=== PATIENT | female | born 1980 | race Two or more races ===

== ENCOUNTER 2021-11-14 23:12 | Emergency (ER) | payer SELFPAY ==
[~2021-11-14] VITALS: Ht 160 cm; Wt 72.6 kg
[2021-11-14] MEDS ORDERED: methylPREDNISolone SOD SUCC 125 MG/2 ML VL ONE (23:16)
[2021-11-14] MEDS ORDERED: methylPREDNISolone SOD SUCC 125 MG/2 ML VL IV ONE (23:30)
[2021-11-14 23:42] LABS: Basophils # (auto) 0.1 10 ^3/uL (0-0.2); Mean Corpuscular Volume 71.5 fL (80.0-100.0); Monocytes # (auto) 1.1 10 ^3/uL (0-1.3)
[2021-11-14 23:44] LABS: Basophils % (auto) 0.6 % (0.0-2.0); Eosinophils % (auto) 7.6 % (0.0-7.0); Hematocrit 31.8 % (36.0-46.0); Hemoglobin 9.6 g/dL (12.2-16.2); Lymphocytes # (auto) 5.1 10 ^3/uL (0.4-5.4); Lymphocytes % (auto) 39.3 % (10.0-50.0); Mean Corpuscular Hemoglobin 21.7 pg (28.0-32.0); Mean Corpuscular Hgb Conc. 30.3 g/dL (32.0-36.0); Monocytes % (auto) 8.7 % (0.0-12.0); Neutrophils # (auto) 5.7 10 ^3/uL (1.6-8.6); Neutrophils % (auto) 43.8 % (37.0-80.0); Nucleated Red Blood Cells % 0.3 %; Red Blood Cells 4.44 10^6/uL (4.0-5.20)
[2021-11-14] MEDS ORDERED: ALBUTEROL SULF 2.5 MG/0.5ML(0.5%) NEB SOLN NEB ONE (23:45)
[2021-11-14] MEDS ORDERED: IPRATROPIUM BROM 0.5 MG/2.5ML INH SOL NEB ONE (23:45)
[2021-11-14 23:59] LABS: Albumin 3.6 g/dL (3.4-5.0); BUN/Creatinine Ratio 23.5; Calcium 7.8 mg/dL (8.5-10.1); Potassium 4.1 mmol/L (3.5-5.1)
[2021-11-15 00:07] LABS: Bilirubin, Total 0.3 mg/dL (0.2-1.0); Total Protein 7.2 g/dL (6.4-8.2)
[2021-11-15 00:10] LABS: Red Cell Distribution Width 23.7 % (11.8-14.3)
[2021-11-15 00:52] VITALS: BP 115/85
[2021-11-15] MEDS ORDERED: guaiFENesin 200 MG/10 ML UD PO PRN (03:45)
[2021-11-15] MEDS ORDERED: DEXTROSE (50%) 50ML SYRG IV PRN (03:45)
[2021-11-15] MEDS ORDERED: LORATADINE 10 MG TAB PO SCH (03:45)
[2021-11-15] MEDS ORDERED: SODIUM CHLORIDE 0.9% 1,000 ML IV SCH (03:45)
[2021-11-15] MEDS ORDERED: ONDANSETRON HCL 4 MG/2 ML VIAL IV PRN (03:45)
[2021-11-15] MEDS ORDERED: MAGNESIUM SULFATE 1GM/100ML 100 ML IV ONE (03:45)
[2021-11-15] MEDS ORDERED: DOCUSATE SOD 100 MG CAP PO PRN (03:45)
[2021-11-15] MEDS ORDERED: FAMOTIDINE 20 MG TAB PO ONE (03:45)
[2021-11-15] MEDS ORDERED: ACETAMINOPHEN 325 MG TAB PO PRN (03:45)
[2021-11-15] MEDS ORDERED: NITROGLYCERIN 0.4 MG SL TAB SL PRN (03:45)
[2021-11-15] MEDS ORDERED: ALBUTEROL SULF 2.5 MG/0.5ML(0.5%) NEB SOLN NEB PRN (03:45)
[2021-11-15] MEDS ORDERED: MONTELUKAST SODIUM 10 MG TAB PO SCH (03:45)
[2021-11-15 04:22] VITALS: BP 121/58
[2021-11-15] MEDS ORDERED: PRED20TA2 PO (04:28)
[2021-11-15] MEDS ORDERED: FLU220IH INH (04:28)
[2021-11-15] MEDS ORDERED: IPRATROPIUM BROM 0.5 MG/2.5ML INH SOL NEB SCH (06:00)
[2021-11-15] MEDS ORDERED: ALBUTEROL SULF 2.5 MG/0.5ML(0.5%) NEB SOLN NEB SCH (06:00)
[2021-11-15] MEDS ORDERED: methylPREDNISolone SOD SUCC 125 MG/2 ML VL IV SCH (06:00)
[2021-11-15] MEDS ORDERED: InsuLIN REG 1unit/0.01ml Soln (100units/ml) SC SCH (07:00)
[2021-11-15] MEDS ORDERED: ACCU-CHEK COMFORT CURVE STRIP VI SCH (07:00)
[2021-11-15] MEDS ORDERED: ENOXAPARIN SOD 40 MG/0.4 ML SYRINGE SC SCH (10:00)
[2021-11-15] MEDS ORDERED: FAMOTIDINE 20 MG TAB PO SCH (10:00)
== END 2021-11-15 04:33 | disposition left against medical advice (07) ==
LOC: ER 23:12 → EDBD 23:12 → UNDOADMIN 11-15 03:46 → WEST WING 11-15 03:46 → ER 11-15 04:33
DX: J45.901 Unspecified asthma with (acute) exacerbation (principal); Z20.822 Contact with and (suspected) exposure to COVID-19; Z53.29 Procedure and treatment not carried out because of patient's decision for other reasons
CPT/HCPCS: 36415; 36600; 71045; 80053; 82805; 83880; 84484; 84702; 85025; 87040; 87426; 96374; 99285; J2930; J3475; 93005

== ENCOUNTER 2021-11-17 10:15 | Inpatient (IN) | payer MEDICAID, OTHER ==
[~2021-11-17] VITALS: Ht 154.9 cm; Wt 85.3 kg
[~2021-11-17 10:15] MED LIST: FLU220IH INH; PRED20TA2 PO
[2021-11-17] MEDS ORDERED: cefTRIAXone SOD 1,000 MG VL IM ONE (11:45)
[2021-11-17] MEDS ORDERED: VANCOMYCIN 1GM/250ML 250 ML IV ONE (12:30)
[2021-11-17 14:04] LABS: Albumin 3.7 g/dL (3.4-5.0); Calcium 8.4 mg/dL (8.5-10.1)
[2021-11-17] MEDS ORDERED: FERR-7 PO (14:06)
[2021-11-17 14:07] LABS: BUN/Creatinine Ratio 24.6; Bilirubin, Total 0.5 mg/dL (0.2-1.0); Total Protein 7.1 g/dL (6.4-8.2)
[2021-11-17] MEDS ORDERED: ONDANSETRON HCL 4 MG/2 ML VIAL IV PRN (14:30)
[2021-11-17] MEDS ORDERED: ALBUTEROL SULF 2.5 MG/0.5ML(0.5%) NEB SOLN NEB PRN (14:30)
[2021-11-17] MEDS ORDERED: ACETAMINOPHEN 325 MG TAB PO PRN (14:30)
[2021-11-17] MEDS ORDERED: VANCOMYCIN PER PHARMACY 0 MG IV SCH (14:30)
[2021-11-17] MEDS: predniSONE 20 MG TAB PO SCH (14:45)
[2021-11-17 16:42] LABS: Basophils # (auto) 0.1 10 ^3/uL (0-0.2); Lymphocytes # (auto) 1.1 10 ^3/uL (0.4-5.4); Monocytes # (auto) 0.4 10 ^3/uL (0-1.3); Nucleated Red Blood Cells % 0.1 %; Red Blood Cells 4.22 10^6/uL (4.0-5.20); White Blood Cell 7.8 10^3/uL (4.4-10.8)
[2021-11-17 16:43] LABS: Basophils % (auto) 0.7 % (0.0-2.0); Eosinophils # (auto) 0.5 10 ^3/uL (0-0.8); Eosinophils % (auto) 6.4 % (0.0-7.0); Hematocrit 29.5 % (36.0-46.0); Lymphocytes % (auto) 14.5 % (10.0-50.0); Mean Corpuscular Hemoglobin 21.4 pg (28.0-32.0); Mean Corpuscular Hgb Conc. 30.6 g/dL (32.0-36.0); Monocytes % (auto) 4.7 % (0.0-12.0); Neutrophils # (auto) 5.7 10 ^3/uL (1.6-8.6); Neutrophils % (auto) 73.7 % (37.0-80.0)
[2021-11-17 16:44] LABS: Red Cell Distribution Width 24.7 % (11.8-14.3)
[2021-11-17 18:32] VITALS: BP 111/62
[2021-11-17 19:10] VITALS: BP 111/62
[2021-11-17] MEDS ORDERED: ALBUAER3 IN (20:43)
[2021-11-17] MEDS ORDERED: AMOX500T86 PO (20:43)
[2021-11-17 21:44] VITALS: BP 111/62
[2021-11-17] MEDS: VANCOMYCIN 1GM/250ML 250 ML IV SCH (21:48)
[2021-11-17 22:00] VITALS: BP 106/66
[2021-11-18] MEDS ORDERED: diphenhdrAMINE HCL 50 MG/1 ML VL IV ONE (02:15)
[2021-11-18 05:00] VITALS: BP 105/58
[2021-11-18] MEDS: VANCOMYCIN 1GM/250ML 250 ML IV SCH ×2 (05:59→14:00)
[2021-11-18 09:00] VITALS: BP 108/61
[2021-11-18] MEDS ORDERED: FLUTICASONE PROP NASAL SPR 0.05 % (50MCG) 16GM EACHNOSTRI SCH (10:00)
[2021-11-18] MEDS: predniSONE 20 MG TAB PO SCH (10:12)
[2021-11-18] MEDS ORDERED: ALBUTEROL SULF 2.5 MG/0.5ML(0.5%) NEB SOLN NEB SCH (12:00)
[2021-11-18] MEDS ORDERED: BUDESONIDE (INHALATION) 0.5 MG/2 ML NEB NEB SCH ×2 (12:00→22:00)
[2021-11-18 13:00] VITALS: BP 111/66
[2021-11-18 17:00] VITALS: BP 114/69
== END 2021-11-18 17:10 | disposition home or self-care (01) | DRG 141 ==
LOC: ER 10:15 → OVERFLOW 14:30 → CENTRAL 18:21
PROVIDERS: ADMIT Internal Medicine; ATTEND Internal Medicine
DX: J45.909 Unspecified asthma, uncomplicated (principal); R78.81 Bacteremia; B96.89 Other specified bacterial agents as the cause of diseases classified elsewhere; Z20.822 Contact with and (suspected) exposure to COVID-19; R53.83 Other fatigue
CPT/HCPCS: 36415; 80053; 80202; 83605; 85025; 87040; 87426; 94640; 96365; 96375; G0378; J0696

== ENCOUNTER 2023-10-05 01:40 | Emergency (ER) | payer MEDICAID ==
[~2023-10-05] VITALS: Ht 30.5 cm; Wt 0.5 kg
[~2023-10-05 01:40] MED LIST changes: +ALBUAER3 IN; +AMOX500T86 PO; +FERR-7 PO
[2023-10-05] MEDS ORDERED: ALBUTEROL SULF 2.5 MG/0.5ML(0.5%) NEB SOLN NEB ONE (02:00)
[2023-10-05] MEDS ORDERED: IPRATROPIUM BROM 0.5 MG/2.5ML INH SOL NEB ONE (02:00)
[2023-10-05] MEDS ORDERED: LEVALBUTEROL HCL 1.25 MG/3 ML NEB NEB STA (02:05)
[2023-10-05] MEDS ORDERED: FAMOTIDINE (10MG/ML) 2ML VL IV ONE (02:15)
[2023-10-05] MEDS ORDERED: BUDESONIDE (INHALATION) 0.5 MG/2 ML NEB NEB ONE (02:15)
[2023-10-05] MEDS ORDERED: SODIUM CHLORIDE 0.9% 1,000 ML IV ONE (02:15)
[2023-10-05] MEDS ORDERED: methylPREDNISolone SOD SUCC 125 MG/2 ML VL IV ONE (02:15)
[2023-10-05] MEDS ORDERED: MAGNESIUM SULFATE 1GM/100ML 100 ML IV SCH (02:15)
[2023-10-05] MEDS ORDERED: DexAMETHasone SOD PHOS 10MG/1ML VIAL INJ IV ONE (02:15)
[2023-10-05 02:26] VITALS: TEMP 98.9
[2023-10-05 02:39] LABS: Chloride 106 mmol/L (98-107); Potassium 3.7 mmol/L (3.5-5.1); Sodium 136 mmol/L (136-145)
[2023-10-05 02:40] LABS: Anion Gap 6 (5-15); Calcium 8.8 mg/dL (8.7-10.4); Carbon Dioxide 24 mmol/L (20-30); Eosinophils # (auto) 0.4 10 ^3/uL (0-0.8)
[2023-10-05 02:43] LABS: Basophils # (auto) 0 10 ^3/uL (0-0.2); Basophils % (auto) 0.4 % (0.0-2.0); Eosinophils % (auto) 3.4 % (0.0-7.0); Hematocrit 35.2 % (36.0-46.0); Lymphocytes # (auto) 2.3 10 ^3/uL (0.4-5.4); Lymphocytes % (auto) 21.9 % (10.0-50.0); Mean Corpuscular Hgb Conc. 31.2 g/dL (32.0-36.0); Monocytes # (auto) 0.8 10 ^3/uL (0-1.3); Monocytes % (auto) 7.9 % (0.0-12.0); Neutrophils # (auto) 7.1 10 ^3/uL (1.6-8.6); Neutrophils % (auto) 66.4 % (37.0-80.0); Red Blood Cells 4.39 10^6/uL (4.0-5.20); Red Cell Distribution Width 16.9 % (11.8-14.3); White Blood Cell 10.6 10^3/uL (4.4-10.8)
[2023-10-05 02:45] LABS: BUN/Creatinine Ratio 18.1 (10.0-20.0); Blood Urea Nitrogen 13 mg/dL (9-23); Glucose 105 mg/dL (74-106)
[2023-10-05] MEDS ORDERED: ALBUAER3 IN (03:08)
[2023-10-05] MEDS ORDERED: DEX4T PO (03:08)
[2023-10-05] MEDS ORDERED: FAMO20TA10 PO (03:08)
[2023-10-05 03:10] VITALS: PULSE 105; RESP 19; O2SAT 96
[2023-10-05 04:16] VITALS: BP 130/65; PULSE 91; RESP 18; O2SAT 99
== END 2023-10-05 04:18 | disposition home or self-care (01) ==
LOC: ER 01:40
DX: J45.901 Unspecified asthma with (acute) exacerbation (principal); R10.2 Pelvic and perineal pain
CPT/HCPCS: 36415; 71045; 80048; 83880; 84484; 84702; 85025; 85379; 94640; 96361; 96374; 96375; 99285; J1100; J2930; J3490; J7644